=== PATIENT | male | born 2000 | race Caucasian/White ===

== ENCOUNTER 2021-02-20 00:05 | Emergency (ER) | payer BC ==
[~2021-02-20] VITALS: Ht 177.8 cm; Wt 76.2 kg
[~2021-02-20 00:05] MED LIST: PROAIR HFA8.5 GM INH
--- NOTE | 2021-02-21 12:54 | EKG ---
[facility] [address] [facility] [place] [address] Signed Normal sinus rhythm with sinus arrhythmia Rightward axis Borderline ECG No previous ECGs available Confirmed by KYLAH GUARDADO MD ([id number]) on 02/21/2021 12:54:42 PM Electronically Signed By: KYLAH GUARDADO MD 02/21/21 1254 PATIENT NAME: LAN CORCORAN BLOOM Electrocardiogram DATE OF : 00 PHYSICIAN: KYLAH GUARDADO MD REPORT #: [id number] REPORT IS CONFIDENTIAL AND NOT TO BE RELEASED WITHOUT AUTHORIZATION
== END 2021-02-20 01:30 | disposition home or self-care (01) ==
LOC: ED 00:05
DX: R55 Syncope and collapse (principal)
CPT/HCPCS: 93005; 93010; 99284-25

== ENCOUNTER 2022-07-07 06:15 | Day surgery (SDC) | payer BC ==
[~2022-07-07] VITALS: Ht 177.8 cm; Wt 80.1 kg
[~2022-07-07 06:15] MED LIST changes: +DICYCLOMINE HCL10 MG PO; +FIBER500 MG PO; +HYDROXYZINE HCL25 MG PO; +MULTI VITAMIN1 EACH PO
--- NOTE | 2022-07-07 07:58 | NUR ---
07/07/22 0758 Joann Jackson 3995-PATIENT ARRIVED TO PACU ON 2L NC RR EVEN. PATIENT LAYING LEFT LATERAL AROUSES TO VERBAL STIMULI OPENING EYES SLIGHTLY REMAINS VERY DROWSY. ABDOMEN SOFT. IVF INFUSING. PATIENT DOZES BACK TO SLEEP.
--- NOTE | 2022-07-07 10:05 | OR ---
[facility] [address] [place], [place] [address] Signed DATE OF OPERATION: 07/07/2022 SURGEON: Vonnie Morris MD PREOPERATIVE DIAGNOSES: 1. Irritable bowel syndrome with mainly constipation, but also diarrhea. 2. Generalized abdominal pain. 3. Brother with irritable bowel syndrome diagnosed at age 8. POSTOPERATIVE DIAGNOSIS: Unremarkable sigmoidoscopy up to splenic flexure. PROCEDURE: Sigmoidoscopy with biopsies of the left colon, sigmoid colon and rectum. ESTIMATED BLOOD LOSS: None. INDICATIONS: Philip is a 21-year-old gentleman asked to see me for a colonoscopy. His brother was diagnosed with irritable bowel syndrome at the age of 8. Philip has irritable bowel syndrome with constipation and some diarrhea well over 10 years. He went up to [place], [place] to see Dr. Lake Valdez who is a pediatric turbinated bone grinder. Dr. Valdez felt that Philip had irritable bowel syndrome. He recommended conservative medical treatment. 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 He will be finishing later this year. He continues to have generalized abdominal pain. He uses hydroxyzine for the anxiety. He is also using dicyclomine and Citrucel. In the office, I gave him a booklet on irritable bowel syndrome as well as colonoscopy. We had reviewed that in detail. He understands the nature of the colonoscopy. There is risk including, but not limited to gas bloating, crampy abdominal pain, bleeding, perforation requiring surgery, and missed diagnosis. We had reviewed sedation in detail. He felt strongly that he would be fine with Versed and fentanyl. It is often quite difficult to fully sedate younger patients with just Versed and fentanyl. We had talked about monitored anesthesia care with propofol. He wanted to try with the Versed and fentanyl. He had expressed understanding and wished to proceed. PROCEDURE NOTE: Philip was taken into our endoscopy suite and placed in the left lateral decubitus position. He was given 10 mg of Versed and 200 mcg of fentanyl to cover the case. He was very sensitive to injection of the fentanyl and Versed through his IV. He was very Electronically Signed By: VONNIE MORRIS MD 07/07/22 1005 PATIENT NAME: PHILIP CORCORAN OPERATIVE REPORT DATE OF : 00 REPORT #: [id number] PHYSICIAN: VONNIE MORRIS MD PCP: MANDY SEGOVIA NP REPORT IS CONFIDENTIAL AND NOT TO BE RELEASED WITHOUT AUTHORIZATION [facility] [address] [place], [place] [address] Signed sensitive to the digital rectal exam. He does have some small external hemorrhoids. He has good sphincter tone. Prostate was not particularly concerning. We were able to introduce the colonoscope and we passed it under direct visualization up to the splenic flexure. It took several minutes and repeated doses of Versed and fentanyl to make it up to the splenic flexure where we saw discoloration of the spleen. At that point, he simply could not tolerate passing the scope any further. We did not have an anesthesia provider available to us to provide propofol. Therefore, we had to withdraw the scope. We took multiple pictures and biopsies throughout the left colon, sigmoid colon and rectum as the scope was withdrawn. He had a little irritation in the rectum from the bowel prep, but otherwise everything seemed to be healthy. We retroflexed the scope and there were no new issues above the anal canal. After this, the gas was suctioned out and the colonoscope removed. Overall, Philip tolerated the procedure well. RECOMMENDATIONS: I will see Philip back in my office in 7 to 14 days to review his biopsy results. In the future, he will definitely need monitored anesthesia care propofol if he wants to pass the scope beyond the splenic flexure. Vonnie Morris MD ALB/MODL /[id number] cc: MD Dr. Mandy Bonner Copies: VONNIE MORRIS MD ~ Electronically Signed By: VONNIE MORRIS MD 07/07/22 1005 PATIENT NAME: PHILIP CORCORAN OPERATIVE REPORT DATE OF : 00 REPORT #: [id number] PHYSICIAN: VONNIE MORRIS MD PCP: MANDY SEGOVIA NP REPORT IS CONFIDENTIAL AND NOT TO BE RELEASED WITHOUT AUTHORIZATION
--- NOTE | 2022-07-08 14:25 | PATH ---
[facility] [address] [facility] [place], [place] [address] Signed SPECIMEN(S): A COLON BIOPSY SPECIMEN(S): B RECTUM SPECIMEN SOURCE: A. COLON BIOPSY B. RECTUM CLINICAL HISTORY: History of constipation and diarrhea; possible IBS. Post: Unremarkable colonoscopy. FINAL PATHOLOGIC DIAGNOSIS: A. Colon biopsy: - Benign colonic mucosa, negative for specific diagnostic abnormality. - Negative for pathologic inflammation. B. Rectum, biopsy: - Benign colonic mucosa, negative for specific diagnostic abnormality. JVR:[id number] MICROSCOPIC EXAMINATION: Histologic sections of all submitted blocks are examined by light microscopy. These findings, together with the gross examination, support the pathologic diagnosis. GROSS DESCRIPTION: A. The specimen, labeled and designated "Sarmad, colon biopsy," is received in formalin and consists of three diaz soft tissue fragments, ranging from 0.4-0.7 cm. Entirely submitted in (A1). B. The specimen, labeled and designated "Sarmad, rectum biopsy," is received in formalin and consists of two diaz soft tissue fragments, ranging from 0.3 cm. Entirely submitted in (B1). AC (under the direct supervision of a pathologist) The Gross Description was prepared using a voice recognition system. The report was reviewed for accuracy; however, sound-alike word errors, addition and/or deletions may occur. If there is any question about this report, please contact Client Services. PERFORMING LABORATORY: The technical component was performed by [facility], [address] [place] [id number] (CLIA# [id number]). Professional interpretation was performed by [facility] Pathology [facility] PATIENT NAME: LAN CORCORAN PATHOLOGY DATE OF : 00 REPORT #: [id number] PHYSICIAN: ELANA PATHOLOGY PCP: ANDRES SEGOVIA NP REPORT IS CONFIDENTIAL AND NOT TO BE RELEASED WITHOUT AUTHORIZATION [facility] [address] [place], [place] [address], [place] [address] (CLIA#: [id number]). Diagnostician: Deshawn Arrieta MD Pathologist Electronically Signed 07/08/2022 Copies: ~ PATIENT NAME: LAN CORCORAN PATHOLOGY DATE OF : 00 REPORT #: [id number] PHYSICIAN: ELANA PATHOLOGY PCP: ANDRES SEGOVIA JAVA APPLICATION DEVELOPER REPORT IS CONFIDENTIAL AND NOT TO BE RELEASED WITHOUT AUTHORIZATION
== END 2022-07-07 09:00 | disposition home or self-care (01) ==
LOC: DS 06:15
PROVIDERS: ATTEND Colon & Rectal Surgery
PROC: 0DBN8ZX Excision of Sigmoid Colon, Via Natural or Artificial Opening Endoscopic, Diagnostic (ICD-10-PCS; 2022-07-07)
PROC: 0DBP8ZX Excision of Rectum, Via Natural or Artificial Opening Endoscopic, Diagnostic (ICD-10-PCS; 2022-07-07)
PROC: 0DBM8ZX Excision of Descending Colon, Via Natural or Artificial Opening Endoscopic, Diagnostic (ICD-10-PCS; principal; 2022-07-07 07:30)
DX: K58.2 Mixed irritable bowel syndrome (principal); K64.4 Residual hemorrhoidal skin tags; J45.909 Unspecified asthma, uncomplicated; F41.9 Anxiety disorder, unspecified; Z88.8 Allergy status to other drugs, medicaments and biological substances
CPT/HCPCS: 99153; G0500; J2250; J3010; J7121

== ENCOUNTER 2024-09-24 18:07 | Emergency (ER) | payer OTHER, BC ==
[~2024-09-24] VITALS: Ht 177.8 cm; Wt 72.9 kg
[2024-09-24 19:59] VITALS: BP 118/76
[2024-09-26 08:23] LABS: HEPATITIS BE ANTIBODY Negative (Negative)
[2024-09-26 08:59] LABS: HEPATITIS BE ANTIGEN Negative (Negative)
== END 2024-09-24 19:59 | disposition home or self-care (01) ==
LOC: ED 18:07
PROVIDERS: Family Medicine
DX: Z77.21 Contact with and (suspected) exposure to potentially hazardous body fluids (principal); Z91.011 Allergy to milk products
CPT/HCPCS: 36415; 84460; 86707; 87350; 99283